=== PATIENT | female | born 1985 | race Caucasian/White ===

== ENCOUNTER 2017-06-10 04:12 | Emergency (ER) | payer SELFPAY ==
[~2017-06-10] VITALS: Ht 157.5 cm; Wt 100.0 kg
[~2017-06-10 04:12] MED LIST: ACET-818 PO; AMO500 PO; FOLI-49 PO; IBUP-1542 PO; PREN1TAB62 PO
[2017-06-10 04:16] VITALS: Ht 157.5 cm; Wt 100.0 kg
--- NOTE | 2017-06-10 04:44 | ERD ---
ER Documentation Chief Complaint Date/Time DATE: 06/10/17 TIME: 04:41 Chief Complaint STATES WOKE UP SUDDENLY AND FELT SOB. DENIES CP HPI 31-year-old female presents with emergency department for complaints of an episode of palpitations and shortness of breath while trying to lay down tonight after coming back to the bed after going to the bathroom. Patient felt heart beating fast, and felt short of breath. Patient denies any chest pain. Patient denies any dizziness. Patient denies any dyspnea on exertion or dyspnea on lying down. Patient denies any cough. ROS All systems reviewed and are negative except as per history of present illness. Medications Home Meds Active Scripts Ibuprofen* (Motrin*) 600 Mg Tab, 600 MG PO Q6H Y for PAIN AND OR ELEVATED TEMP, #30 TAB Prov:LAWSON DIXON [employer] 04/01/16 Amoxicillin* (Amoxicillin*) 500 Mg Cap, 500 MG PO TID for 10 Days, CAP Prov:LAWSON DIXON [employer] 04/01/16 Reported Medications Vit-Iron Fumarate-FA ( Vitamin Tablet) 1 Each Tablet, 1 TAB PO AM, TAB 11/02/14 Folic Acid* (Folic Acid*) 1 Mg Tablet, 1 MG PO DAILY, TAB 08/30/14 Vit-Iron Fumarate-FA ( Vitamin Tablet) 1 Each Tablet, 1 TAB PO AM, TAB 08/30/14 Allergies Allergies: Coded Allergies: morphine (Verified Allergy, Unknown, short of breath, 04/01/16) PMhx/Soc Medical and Surgical Hx: pt denies Medical Hx, pt denies Surgical Hx History of Surgery: No Anesthesia Reaction: No Hx Neurological Disorder: No Hx Respiratory Disorders: No Hx Cardiac Disorders: No Hx Psychiatric Problems: No Hx Miscellaneous Medical Probl: No Hx Alcohol Use: No Hx Substance Use: No Hx Tobacco Use: No FmHx Family History: No coronary disease, No diabetes, No other Physical Exam Vitals Vital Signs Date Time Temp Pulse Resp B/P Pulse Ox O2 Delivery O2 Flow Rate FiO2 06/10/17 04:16 98.9 105 20 160/89 100 Physical Exam GENERAL: The patient is well developed and appropriate for usual state of health, in no apparent distress. CHEST: Clear to auscultation bilaterally. There are no rales, wheezes or rhonchi. HEART: Regular rate and rhythm. No murmurs, clicks, rubs or gallops. No S3 or S4. ABDOMEN: Soft, nontender and nondistended. Good bowel sounds. No rebound or guarding. No gross peritonitis. No gross organomegaly or masses. No Hernandez sign or McBurney point tenderness. BACK: No midline or flank tenderness. EXTREMITIES: Equal pulses bilaterally. There is no peripheral clubbing, cyanosis or edema. No focal swelling or erythema. Full range of motion. Grossly neurovascularly intact. NEURO: Alert and oriented. Cranial nerves 2-12 intact. Motor strength in all 4 extremities with 5/5 strength. Sensation grossly intact. Normal speech and gait. SKIN: There is no apparent rash or petechia. The skin is warm and dry. HEMATOLOGIC AND LYMPHATIC: There is no evidence of excessive bruising or lymphedema. No gross cervical, axillary, or inguinal lymphadenopathy. Results 24 hrs EKG was done, read by me and is normal sinus rhythm at a rate of 98, normal axis , there is no ST changes or changes in the EKG that indicates any cardiac emergencies at this time. Patient's EKG was also reviewed by Dr. Lacy. Impression: no acute findings on EKG PROCEDURE: Chest. CLINICAL INDICATION: Shortness of breath. TECHNIQUE: Single frontal view of the chest was obtained. COMPARISON: None. FINDINGS: The cardiac silhouette is within normal limits. The aortic arch is unremarkable. There is no focal consolidation, vascular congestion or pleural effusion. There is no pneumothorax. IMPRESSION: No evidence for active cardiopulmonary disease. .Jose Maria Armas MD, MD Date Time Electronically viewed and signed by .Jose Maria Armas MD, MD on 06/10/2017 05:01 .T/ CC: LAWSON DIXON [employer] Procedures/MDM Medical Decision Making: Patient's symptoms of palpitations and shortness of breath nonspecific at this time, can be some form of anxiety, nonspecific. There is low suspicion for cardiopulmonary emergencies at this time. Patient has low risk factors. EKG is normal, there is no changes in the EKG that indicates cardiac emergencies. Chest X-ray does not show cardiopulmonary emergencies at this time. There is low suspicion for aortic aneurysm, myocardial infarction, pneumothorax, pleural effusion, pulmonary embolism, or any other cardiopulmonary emergencies at this time. Patient was advised to see primary care doctor in the next 2-3 days, possibly to capacity management specialist for Holter monitoring and further evaluation. Patient was advised to return to emergency department for any worsening symptoms. Dispostion: Home. Stable Departure Diagnosis: Primary Impression: Palpitations Condition: Stable Patient Instructions: Palpitations LAWSON DIXON NP Jun 10, 2017 04:44
--- NOTE | 2017-06-10 05:01 | RADRPT ---
PROCEDURE: Chest. CLINICAL INDICATION: Shortness of breath. TECHNIQUE: Single frontal view of the chest was obtained. COMPARISON: None. FINDINGS: The cardiac silhouette is within normal limits. The aortic arch is unremarkable. There is no focal consolidation, vascular congestion or pleural effusion. There is no pneumothorax. IMPRESSION: No evidence for active cardiopulmonary disease. .Jose Maria Armas MD, MD Date Time Electronically viewed and signed by .Jose Maria Armas MD, on 06/10/2017 05:01 .T/
[2017-06-10 05:36] VITALS: BP 131/89; PULSE 83; RESP 16
== END 2017-06-10 05:40 | disposition home or self-care (01) ==
LOC: FTE 04:12
DX: R00.2 Palpitations (principal)
CPT/HCPCS: 71010; 93005

== ENCOUNTER 2018-09-05 23:27 | Emergency (ER) | END 2018-09-06 01:15 | disposition home or self-care (01) ==